=== PATIENT | male | born 1995 | race African-American/Black ===

== ENCOUNTER 2020-02-02 09:23 | Emergency (ER) | payer OTHER ==
--- NOTE | 2020-02-02 09:57 | ED Physician Documentation ---
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 He had 2 episodes of vomiting one episode of diarrhea he has had a subsequent normal bowel movement and he has some queasiness to his stomach but i s otherwise not nauseous now. He states he had a normal breakfast of werner and eggs and hashbrowns and did not suspect undercooked or tainted food. He remembers having dinner last night spaghetti and did not feel ill when he went to bed last night. He was asked by his command to come to the emergency department for evaluation. Review of Systems Constitutional: denies: Fever, Chills, Myalgias Eyes: denies: Decreased vision Ears: denies: Ear pain Nose: denies: Rhinorrhea / runny nose, Congestion Throat: denies: Sore throat Cardiac: denies: Chest pain / pressure Respiratory: denies: Dyspnea, Cough GI: reports: Abdominal Pain, Nausea, Vomiting, Diarrhea : denies: Dysuria, Frequency Skin: denies: Rash Musculoskeletal: denies: Neck pain, Back pain, Extremity pain Neurologic: reports: Near syncope. denies: Generalized weakness, Focal weakness, Numbness, Difficulty speaking PD PAST MEDICAL HISTORY - Present Medications Home Medications: Ambulatory Orders Medication Instructions Recorded Confirmed Ondansetron Odt [Zofran] 4 mg TL Q6H PRN #10 tablet 02/02/20 - Allergies Allergies/Adverse Reactions: Allergies Allergy/AdvReac Type Severity Reaction Status Date / Time No Known Drug Allergies Allergy Verified 02/02/20 09:26 PD ED PE NORMAL - Vitals Vital signs reviewed: Yes (hypertensive ) - General General: Alert and oriented X 3, No acute distress, Well developed/nourished - HEENT HEENT: Atraumatic, PERRL, EOMI - Neck Neck: Supple, no meningeal sign, No bony TTP - Cardiac Cardiac: RRR, No murmur - Respiratory Respiratory: No respiratory distress, Clear bilaterally - Abdomen Abdomen: Normal bowel sounds, Soft, Non tender, Non distended, No organomegaly - Back Back: No CVA TTP, No spinal TTP - Derm Derm: Normal color, Warm and dry, No rash - Extremities Extremities: No deformity, No edema - Neuro Neuro: Alert and oriented X 3, motivational speaker 2-12 intact, No motor deficit, No sensory deficit, Normal speech Eye Opening: Spontaneous Motor: Obeys Commands Verbal: Oriented GCS Score: 15 - Psych Psych: Normal mood, Normal affect Results - Vitals Vitals: Vital Signs - 24 hr 02/01/ 09:26 Temperature 36.5 C Heart Rate 79 Respiratory 18 Rate Blood Pressure 134/84 H O2 Saturation 97 Oxygen O2 Source Room air PD MEDICAL DECISION MAKING - ED course Complexity details: considered differential, d/w patient ED course: 25-year-old male asked by his plan to come to the emergency department for evaluation after having a single episode of diarrhea and vomiting does not feel ill now. I discussed with the patient treatment to include administration of antinausea medication and observation. With a single episode of vomiting and diarrhea it is unlikely he is dehydrated and intravenous fluids were not administered. Departure - Departure Disposition: 01 Home, Self Care Clinical Impression: Gastroenteritis Condition: Stable Instructions: ED Gastroenteritis Non Infec [facility] Prescriptions: Ondansetron Odt [Zofran] 4 mg TL Q6H PRN #10 tablet PRN Reason: Nausea / Vomiting
[2020-02-02 10:06] VITALS: BP 135/85
== END 2020-02-02 10:14 | disposition home or self-care (01) ==
LOC: ED 09:23
DX: K52.9 Noninfective gastroenteritis and colitis, unspecified (principal)
CPT/HCPCS: 99282; 99284